=== PATIENT | male | born 1955 | race Caucasian/White ===

== ENCOUNTER 2020-12-14 13:27 | Inpatient (IN) ==
[2020-12-14] MEDS ORDERED: cefTRIAXone SODIUM 2,000 MG/70 ML BAG IV STA (13:55)
--- NOTE | 2020-12-14 14:09 | Emergency Department Note ---
Impression & Plan Cellulitis, Edema, Post op infection, Infection of bursa ED Provider Note NAME: MILENA RODGERS AGE: 65 SEX: M : 1955 ARRIVES VIA: Walk-In INFORMANT: Patient ED PROVIDER(S): Tucker Middleton DO CHIEF COMPLAINT: Left leg pain HPI: Patient is a 65-year-old male who had surgery on his left knee for his bursa, bone spurs and he believes they did some with the bone marrow to help it heal quicker. He presents the ER for redness and swelling of the leg which has been getting worse for the past week. He had the surgery done down in [place]. A week after the surgery he had a significant amount of swelling and his physician opened up the incision and expressed a large amount of blood. He notes it was healing well until he started PT about a week ago. The swelling started then along with some redness over the kneecap. It has now progressed to include his entire left lower extremity. ROS: See above HPI for pertinent positives & negatives. A total of 10 systems reviewed and were otherwise negative. PAST MEDICAL HISTORY:See Below PAST SURGICAL HISTORY:See Below FAMILY HISTORY:See Below SOCIAL HISTORY:See Below HOME MEDICATIONS:See Below ALLERGIES:See Below VITALS:See Below PHYSICAL EXAMINATION: GENERAL: Sitting up in bed, alert, well appearing, well nourished, no distress, non-toxic EYE EXAM: normal conjunctiva. OROPHARYNX: no exudate, no erythema, lips, buccal mucosa, and tongue normal and mucous membranes are moist NECK: supple, no nuchal rigidity, no adenopathy, non-tender LUNGS: Clear to auscultation. Normal chest wall mechanics HEART: no murmurs, S1 normal and S2 normal ABDOMEN: abdomen soft, non-tender, normo-active bowel sounds, no masses, no rebound or guarding. UPPER EXTREMITIES: upper extremities are grossly normal. LOWER EXTREMITIES: Swelling and erythema over the left knee with a prepatellar effusion. Redness is tracking down the leg to the ankle. NEURO EXAM: Normal sensorium, cranial nerves II-XII grossly intact, normal speech, no gross weakness of arms, no gross weakness of legs. MEDICAL DECISION MAKING: Patient is a 65-year-old male who presents the ER for redness and pain in his left lower extremity. This all started about within 1 month from the surgery of his left knee. On exam he has a postop infection which likely includes the left knee prepatellar bursa. IV was established blood work was obtained. Labs show no significant leukocytosis or anemia. BMP was unremarkable as well as LFTs bilirubin. Orthopedics was consulted and patient was admitted for further work- up. X-rays of the knee showed prepatellar effusion. Triage Nursing notes reviewed. Limited review of prior medical records performed Vital Signs: reviewed and remarkable for no significant abnormalities Differential diagnosis: Cellulitis, abscess, MRSA infection, DVT, necrotizing fasciitis, dermatitis, drug eruption, allergic reaction, as well as other pathologies. ER treatment provided: See below Diagnostics interpreted by me: ECG: none Cardiac Monitoring: An order was placed for continuous cardiac monitoring. The monitor shows a rate of 70 with sinus rhythm. Laboratory studies: As stated above and show below. Imaging studies: X-ray left knee shows prepatellar effusion Consultation(s): Discussed with Dr. Benoit Ambrocio who evaluated the patient at bedside admitted on. Procedures: none Critical Care: None Past Med/Surg History Social History Smoking Status: Never smoker Preferred Language: Nicaraguan Feels Safe at Home: Yes Allergies Allergies Allergy/AdvReac Type Severity Reaction Status Date / Time No Known Allergies Allergy Unverified 12/14/20 14:36 Home Meds Home Medications Medication Instructions Recorded Confirmed allopurinol 100 mg PO DAILY 12/14/20 12/14/20 atenolol 25 mg PO DAILY 12/14/20 12/14/20 folic acid 0.8 mg PO BID 12/14/20 12/14/20 hydrochlorothiazide 25 mg PO DAILY 12/14/20 12/14/20 methotrexate sodium 5 mg PO DAILY 12/14/20 12/14/20 potassium citrate 10 meq PO BID 12/14/20 12/14/20 simvastatin 20 mg PO DAILY 12/14/20 12/14/20 Results & Data (ED) Vital Signs Vital Signs - 24 hr 12/14/20 13:33 12/14/20 14:29 12/14/20 16:00 Temperature 36.3 C L Temperature Source Temporal Artery Scan Pulse Rate 70 62 Pulse Rate from SpO2 Sensor 62 67 Respiratory Rate 18 16 Respiratory Effort / Characteristics Non-Labored Spontaneous Respiratory Depth Normal Respiratory Pattern Regular Blood Pressure 136/86 129/84 Blood Pressure Mean 102 99 Pulse Oximetry 96 97 98 Oxygen Delivery Method Room Air Sepsis Recent Fever Within 48 Hours No Sepsis New/Unexplained Change in Mental Status No Sepsis Action Taken by Nursing No Action Required 12/14/20 17:01 Temperature Temperature Source Pulse Rate Pulse Rate from SpO2 Sensor 66 Respiratory Rate 16 Respiratory Effort / Characteristics Respiratory Depth Respiratory Pattern Blood Pressure 153/97 H Blood Pressure Mean 115 Pulse Oximetry 97 Oxygen Delivery Method Sepsis Recent Fever Within 48 Hours Sepsis New/Unexplained Change in Mental Status Sepsis Action Taken by Nursing Laboratory Data Result diagrams: 12/14/20 13:50 12/14/20 13:50 Lab Results 12/14/20 12/14/20 12/14/20 Range/Units 13:50 13:50 13:50 WBC 8.81 (4.8-10.8) K/uL RBC 4.03 L (4.7-6.1) M/uL Hgb 14.1 (14.0-18.0) g/dL Hct 40.1 L (42-52) % MCV 99.5 (80-100) fL MCH 35.0 H (25-34) pg MCHC 35.2 (32-36) g/dL RDW Std Deviation 47.6 H (36.4-46.3) fL RDW Coeff of Castro 13.2 (11.5-14.5) % Plt Count 262 (130-400) K/uL MPV 9.1 (7.4-10.4) fL Immature Gran % (Auto) 0.2 % Neut % (Auto) 71.9 % Lymph % (Auto) 17.4 % Stevens % (Auto) 8.6 % Eos % (Auto) 1.7 % Baso % (Auto) 0.2 % Neut # (Auto) 6.33 (1.4-6.5) K/uL Lymph # (Auto) 1.53 (1.2-3.4) K/uL Stevens # (Auto) 0.76 H (0.11-0.59) K/uL Eos # (Auto) 0.15 (0-0.5) K/uL Baso # (Auto) 0.02 (0-0.2) K/uL Immature Gran # (Auto) 0.02 (0.00-0.02) K/uL ESR 56 H (0-20) mm/hr Sodium 141 (136-145) mmol/L Potassium 3.5 (3.5-5.1) mmol/L Chloride 105 (98-107) mmol/L Carbon Dioxide 32 (21-32) mmol/L Anion Gap 4.0 (3-11) BUN 22 H (7-18) mg/dl Creatinine 1.24 (0.6-1.4) mg/dl Est Cr Clr Drug Dosing 65.3 ml/min Est GFR ( Amer) 69.3 Est GFR (Non-Af Amer) 59.8 BUN/Creatinine Ratio 17.3 (10-20) Glucose 87 (70-99) mg/dl Calcium 9.9 (8.5-10.1) mg/dl Total Bilirubin 0.8 (0.2-1) mg/dl AST 19 (15-37) U/L ALT 31 (12-78) U/L Alkaline Phosphatase 112 (45-117) U/L C-Reactive Protein (0-0.29) mg/dl Total Protein 7.3 (6.4-8.2) gm/dl Albumin 3.2 L (3.4-5.0) gm/dl Globulin 4.1 H (2.5-4.0) gm/dl Albumin/Globulin Ratio 0.8 L (0.9-2) Fluid Comment Synovial Source Synovial Color Synovial Appearance Synovial WBC (0-200) /ul Synovial RBC /uL Synovial Polynuclear % % Synovial Mononuclear % % COVID-19 Eval Order SARS-CoV-2 (PCR) (Negative) Influenza Type A (PCR) (Neg) Influenza Type B (PCR) (Neg) RSV (RT-PCR) (Neg) 12/14/20 12/14/20 12/14/20 Range/Units 13:50 15:21 17:10 WBC (4.8-10.8) K/uL RBC (4.7-6.1) M/uL Hgb (14.0-18.0) g/dL Hct (42-52) % MCV (80-100) fL MCH (25-34) pg MCHC (32-36) g/dL RDW Std Deviation (36.4-46.3) fL RDW Coeff of Castro (11.5-14.5) % Plt Count (130-400) K/uL MPV (7.4-10.4) fL Immature Gran % (Auto) % Neut % (Auto) % Lymph % (Auto) % Stevens % (Auto) % Eos % (Auto) % Baso % (Auto) % Neut # (Auto) (1.4-6.5) K/uL Lymph # (Auto) (1.2-3.4) K/uL Stevens # (Auto) (0.11-0.59) K/uL Eos # (Auto) (0-0.5) K/uL Baso # (Auto) (0-0.2) K/uL Immature Gran # (Auto) (0.00-0.02) K/uL ESR (0-20) mm/hr Sodium (136-145) mmol/L Potassium (3.5-5.1) mmol/L Chloride (98-107) mmol/L Carbon Dioxide (21-32) mmol/L Anion Gap (3-11) BUN (7-18) mg/dl Creatinine (0.6-1.4) mg/dl Est Cr Clr Drug Dosing ml/min Est GFR ( Amer) Est GFR (Non-Af Amer) BUN/Creatinine Ratio (10-20) Glucose (70-99) mg/dl Calcium (8.5-10.1) mg/dl Total Bilirubin (0.2-1) mg/dl AST (15-37) U/L ALT (12-78) U/L Alkaline Phosphatase (45-117) U/L C-Reactive Protein 10.40 H (0-0.29) mg/dl Total Protein (6.4-8.2) gm/dl Albumin (3.4-5.0) gm/dl Globulin (2.5-4.0) gm/dl Albumin/Globulin Ratio (0.9-2) Fluid Comment Synovial Source KNEE Synovial Color ZORA Synovial Appearance HAZY Synovial WBC 4728 H (0-200) /ul Syn[place] RBC 63[address] /uL Synovial Polynuclear % 96.5 % Synovial Mononuclear % 3.5 % COVID-19 Eval Order CovFluRsv at [facility] SARS-CoV-2 (PCR) (Negative) Influenza Type A (PCR) (Neg) Influenza Type B (PCR) (Neg) RSV (RT-PCR) (Neg) 12/14/20 Range/Units 17:10 WBC (4.8-10.8) K/uL RBC (4.7-6.1) M/uL Hgb (14.0-18.0) g/dL Hct (42-52) % MCV (80-100) fL MCH (25-34) pg MCHC (32-36) g/dL RDW Std Deviation (36.4-46.3) fL RDW Coeff of Castro (11.5-14.5) % Plt Count (130-400) K/uL MPV (7.4-10.4) fL Immature Gran % (Auto) % Neut % (Auto) % Lymph % (Auto) % Stevens % (Auto) % Eos % (Auto) % Baso % (Auto) % Neut # (Auto) (1.4-6.5) K/uL Lymph # (Auto) (1.2-3.4) K/uL Stevens # (Auto) (0.11-0.59) K/uL Eos # (Auto) (0-0.5) K/uL Baso # (Auto) (0-0.2) K/uL Immature Gran # (Auto) (0.00-0.02) K/uL ESR (0-20) mm/hr Sodium (136-145) mmol/L Potassium (3.5-5.1) mmol/L Chloride (98-107) mmol/L Carbon Dioxide (21-32) mmol/L Anion Gap (3-11) BUN (7-18) mg/dl Creatinine (0.6-1.4) mg/dl Est Cr Clr Drug Dosing ml/min Est GFR ( Amer) Est GFR (Non-Af Amer) BUN/Creatinine Ratio (10-20) Glucose (70-99) mg/dl Calcium (8.5-10.1) mg/dl Total Bilirubin (0.2-1) mg/dl AST (15-37) U/L ALT (12-78) U/L Alkaline Phosphatase (45-117) U/L C-Reactive Protein (0-0.29) mg/dl Total Protein (6.4-8.2) gm/dl Albumin (3.4-5.0) gm/dl Globulin (2.5-4.0) gm/dl Albumin/Globulin Ratio (0.9-2) Fluid Comment Synovial Source Synovial Color Synovial Appearance Synovial WBC (0-200) /ul Synovial RBC /uL Synovial Polynuclear % % Synovial Mononuclear % % COVID-19 Eval Order SARS-CoV-2 (PCR) NEGATIVE (Negative) Influenza Type A (PCR) Negative (Neg) Influenza Type B (PCR) Negative (Neg) RSV (RT-PCR) Negative (Neg) Administered Medications Discontinued Medications Ceftriaxone Sodium (Rocephin) 2,000 mg in 70 mls @ 140 mls/hr IV NOW STA Stop: 12/14/20 14:24 Last Infusion: 12/14/20 15:31 Dose: 0 mls/hr Documented by: [id number] Admin: 12/14/20 14:31 Dose: 140 mls/hr Documented by: [id number] Piperacillin Sod/Tazobactam (Sod 4.5 gm/ Dextrose) 120 mls @ 200 mls/hr IV NOW ONE; Protocol Stop: 12/14/20 16:22 Last Infusion: 12/14/20 18:02 Dose: 0 mls/hr Documented by: [id number] Admin: 12/14/20 17:50 Dose: 200 mls/hr Documented by: [id number] Piperacillin Sod/Tazobactam Sod (Piperacillin/Tazobactam 4.5 Gm/120ml D5w) Confirm Administered Dose 4.5 gm IV .STK-MED ONE Stop: 12/14/20 16:51 Last Admin: 12/14/20 17:05 Dose: 4.5 gm Documented by: [id number] Imaging Data Radiologist's Impression: Knee X-Ray 12/14/20 13:55 XR knee LT 3V HISTORY: 65 years-old Male l knee acute left knee pain COMPARISON: None TECHNIQUE: 3 views of the left knee FINDINGS: Moderate prepatellar soft tissue swelling. Circumferential soft tissue swelling of the knee. Mild medial and patellofemoral compartment osteoarthritis. No acute fracture, dislocation, or opaque foreign body. Trace joint effusion. IMPRESSION: 1. No acute fracture. 2. Circumferential soft tissue swelling, moderate in the prepatellar tissues. ACT 112: Negative or not required by law. The above report was generated using voice recognition software. It may contain grammatical, syntax or spelling errors. Electronically signed by: Rayray Major M.D. 12/14/2020 2:17 PM Chest X-Ray 12/14/20 15:28 XR chest 2V PA/lateral HISTORY: 65 years-old Male knee infection acute sepsis COMPARISON: None TECHNIQUE: PA and lateral views of the chest FINDINGS: Cardiac silhouette is upper limits of normal in size. Mild bilateral hilar prominence. No pneumothorax, pleural effusion, airspace consolidation or overt pulmonary edema. Possible nipple shadow the left midlung, 7 mm. Surgical clips project over the upper chest. Degenerative changes of the shoulders and spine. IMPRESSION: 1. No airspace consolidation. 2. Mild bilateral hilar prominence may be secondary to pulmonary vasculature versus adenopathy. ACT 112: Negative or not required by law. The above report was generated using voice recognition software. It may contain grammatical, syntax or spelling errors. Electronically signed by: Rayray Major M.D. 12/14/2020 4:58 PM Venous Doppler Study 12/14/20 15:28 US venous doppler LE LT HISTORY: 65 years-old Male leg pain and swelling acute pain and swelling of the left lower extremity COMPARISON: None TECHNIQUE: Multiple real-time sonographic images of the left lower extremity deep venous structures were obtained assessing grayscale appearance, color and spectral flow FINDINGS: Normal flow, compressibility, phasicity and augmentation IMPRESSION: No sonographic evidence of deep venous thrombosis. ACT 112: Negative or not required by law. The above report was generated using voice recognition software. It may contain grammatical, syntax or spelling errors. Electronically signed by: Rayray Major M.D. 12/14/2020 4:54 PM Discharge Plan Visit Data Chief Complaint: Swelling/Edema to Extremity Stated Complaint: L KNEE SURGERY ON 11/06/SWELLING OF LEFT KNEE & LE ED Provider: Tucker Middleton Discharge Problem: Cellulitis, Edema, Post op infection, Infection of bursa Forms Stand Alone Forms: [employer] Prescriptions Prescriptions: No Action atenolol 25 mg Tablet 25 mg PO DAILY RF: 0 allopurinol 100 mg Tablet 100 mg PO DAILY RF: 0 potassium citrate 10 mEq (1,080 mg) Tablet Extended Release 10 meq PO BID RF: 0 simvastatin 20 mg Tablet 20 mg PO DAILY RF: 0 methotrexate sodium 5 mg Tablet 5 mg PO DAILY RF: 0 hydrochlorothiazide 25 mg Tablet 25 mg PO DAILY RF: 0 folic acid 0.8 mg Capsule 0.8 mg PO BID RF: 0 Discharge Problem: Cellulitis Qualifiers: Site of cellulitis: extremity Site of cellulitis of extremity: lower extremity Laterality: left Qualified Code(s): L03.116 - Cellulitis of left lower limb Edema Qualifiers: Edema type: unspecified Qualified Code(s): R60.9 - Edema, unspecified Post op infection Qualifiers: Encounter type: initial encounter Postoperative infection type: unspecified type Qualified Code(s): T81.40XA - Infection following a procedure, unspecified, initial encounter
[2020-12-14 14:14] LABS: Basophils # (auto) 0.02 K/uL (0-0.2); Basophils % (auto) 0.2 %; Eosinophils # (auto) 0.15 K/uL (0-0.5); Eosinophils % (auto) 1.7 %; Hematocrit (blood only) 40.1 % (42-52); Hemoglobin 14.1 g/dL (14.0-18.0); Immature Granulocytes # (auto) 0.02 K/uL (0.00-0.02); Immature Granulocytes % (auto) 0.2 %; Lymphocytes # (auto) 1.53 K/uL (1.2-3.4); Lymphocytes % (auto) 17.4 %; Mean Corpuscular Hgb Conc 35.2 g/dL (32-36); Mean Corpuscular Volume 99.5 fL (80-100); Mean Platelet Volume 9.1 fL (7.4-10.4); Monocytes # (auto) 0.76 K/uL (0.11-0.59); Monocytes % (auto) 8.6 %; Neutrophils # (auto) 6.33 K/uL (1.4-6.5); Neutrophils % (auto) 71.9 %; Platelet Count 262 K/uL (130-400); RDW Coefficient of Variation 13.2 % (11.5-14.5); RDW Standard Deviation 47.6 fL (36.4-46.3); Red Blood Count 4.03 M/uL (4.7-6.1); White Blood Count 8.81 K/uL (4.8-10.8)
--- NOTE | 2020-12-14 14:19 | XRay Report ---
XR knee LT 3V HISTORY: 65 years-old Male l knee acute left knee pain COMPARISON: None TECHNIQUE: 3 views of the left knee FINDINGS: Moderate prepatellar soft tissue swelling. Circumferential soft tissue swelling of the knee. Mild med ial and patellofemoral compartment osteoarthritis. No acute fracture, dislocation, or opaque foreign body. Trace joint effusion. IMPRESSION: 1. No acute fracture. 2. Circumferential soft tissue swelling, moderate in the prepatellar tissues. ACT 112: Negative or not required by law. The above report was generated using voice recognition software. It may contain grammatical, syntax o r spelling errors. Electronically signed by: Rayray Major M.D. 12/14/2020 2:17 PM
[2020-12-14 14:26] LABS: Albumin Level 3.2 gm/dl (3.4-5.0); BUN Creatinine Ratio 17.3 (10-20); Calcium 9.9 mg/dl (8.5-10.1); Creatinine Clr Calc Pharmacy 65.3 ml/min; Est GFR (African American) 69.3; Est GFR (Non-African American) 59.8; Potassium 3.5 mmol/L (3.5-5.1)
[2020-12-14 14:29] LABS: Albumin Globulin Ratio 0.8 (0.9-2); Bilirubin,Total 0.8 mg/dl (0.2-1); Globulin 4.1 gm/dl (2.5-4.0); Total Protein 7.3 gm/dl (6.4-8.2)
[2020-12-14] MEDS ORDERED: VANCOMYCIN CONSULT ACTIVE PRN ×3 (15:45→20:16)
[2020-12-14] MEDS ORDERED: PIPERACILL/TAZOBAC CONSULT ACTIVE PRN (15:47)
[2020-12-14] MEDS ORDERED: PIPERACILLIN/TAZOBACTAM 4.5 GM in DEXTROSE 5% 100 ML IV ONE (15:47)
[2020-12-14 16:05] LABS: Appearance Synovial Fluid HAZY; Color Synovial Fluid AMBER; Mononuclear WBC Synovial 3.5 %; Polynuclear WBC Synovial 96.5 %; RBC Synovial Fluid (A) 30000 /uL; Source Synovial Fluid KNEE; WBC Synovial Fluid (A) 4728 /ul (0-200)
[2020-12-14] MEDS ORDERED: PIPERACILLIN/TAZOBACTAM 4.5 GM/120ML D5W IV ONE (16:50)
--- NOTE | 2020-12-14 16:56 | Ultrasound Report ---
US venous doppler LE LT HISTORY: 65 years-old Male leg pain and swelling acute pain and swelling of the left lower extremity COMPARISON: None TECHNIQUE: Multiple real-time sonographic images of the left lower extremity deep venous structures w ere obtained assessing grayscale appearance, color and spectral flow FINDINGS: Normal flow, compressibility, phasicity and augmentation IMPRESSION: No sonographic evidence of deep venous thrombosis. ACT 112: Negative or not required by law. The above report was generated using voice recognition software. It may contain grammatical, syntax o r spelling errors. Electronically signed by: Rayray Major M.D. 12/14/2020 4:54 PM
--- NOTE | 2020-12-14 16:59 | XRay Report ---
XR chest 2V PA/lateral HISTORY: 65 years-old Male knee infection acute sepsis COMPARISON: None TECHNIQUE: PA and lateral views of the chest FINDINGS: Cardiac silhouette is upper limits of normal in size. Mild bilateral hilar prominence. No pneumothora x, pleural effusion, airspace consolidation or overt pulmonary edema. Possible nipple shadow the left midlung, 7 mm. Surgical clips project over the upper chest. Degenerative changes of the shoulders an d spine. IMPRESSION: 1. No airspace consolidation. 2. Mild bilateral hilar prominence may be secondary to pulmonary vasculature versus adenopathy. ACT 112: Negative or not required by law. The above report was generated using voice recognition software. It may contain grammatical, syntax o r spelling errors. Electronically signed by: Rayray Major M.D. 12/14/2020 4:58 PM
--- NOTE | 2020-12-14 17:47 | History and Physical Report ---
DATE OF ADMISSION: 12/14/2020 CHIEF COMPLAINT: Left knee pain and swelling. HISTORY OF PRESENT ILLNESS: The patient is a 65. 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 On 11/06/2020, he had a left knee prepatellar open bursectomy. He reports that the doctor removed some bone spurs and also did something with bone marrow. Records are requested and pending. He did not have a knee arthroscopy. He has been in a knee brace to ambulate weightbearing as tolerated with the knee in extension, which does not bother him. He has been in physical therapy and is able to bend his knee, he reports up to 120 degrees. After the surgery because of the nerve block, he fell a couple times and when he went back to follow up with his doctor, it sounds like he had a hematoma in the bursa, which they squeezed to express. For the subsequent several days, he had a little bit of drainage from the knee, but since about 2-3 weeks after surgery, he has not had any knee drainage. The knee had not returned to its normal size and remained somewhat swollen. Over the past week and particularly over the past 3 days, he has noted increased knee pain, especially when he is standing. Swelling of the knee and leg as well as there is redness of the knee and lower left leg. The leg problems really begun in the past 24-48 hours. He denies having fevers, but he did have one episode of chills. His doctor is Tess Gunderson in [place]. He saw the physician's dietary assistant 2 weeks postop and is due to go back for followup in about 2 weeks. He is supposed to head back to [place] on Friday. PAST MEDICAL HISTORY: Significant for rheumatoid arthritis, hypertension, kidney stones and cholesterol. REVIEW OF SYSTEMS: He denies diabetes, heart attack, stroke, lung disease, cancer, blood clots or bleeding problems. ALLERGIES TO MEDICINES: None. SOCIAL HISTORY: He lives in [place]. He is retired. He occasionally drinks and does not smoke. PAST SURGICAL HISTORY: Surgically, he has only had both of his knee bursas excised. MEDICATIONS: Include atenolol, allopurinol, which he takes for kidney stones, simvastatin, calcium citrate for kidney stones and hydrochlorothiazide. He takes methotrexate 8 tablets of 5 mg once a week on Wednesday. He just took it yesterday. PHYSICAL EXAMINATION: GENERAL: He is awake, alert and oriented in no acute distress. EXTREMITIES: Examination of the left knee reveals bright red discoloration with some purplish use involving the prepatellar bursal area of the left knee extending medial and lateral to the midline and distal to the tibial tubercle, but nothing proximally. There is no proximal tenderness or lymphadenopathy in the left groin. The left quadriceps is atrophied. He is able to do a straight leg raise and has knee motion from 0-100 degrees. There is trace if any intraarticular fluid, but a large prepatellar bursal collection. The incision is well healed and there is no drainage. Dorsalis pedis and posterior tibial pulses are 1+. Sensation is intact. He is able to do a straight leg raise without a lag. He has 5/5 knee flexion and extension strength. 5/5 ankle and toe plantarflexion, dorsiflexion, inversion and eversion strength. Erythema extends down the anterior leg with 1+ pitting edema down to the ankle area. The foot is uninvolved. The posterior calf is not tender. Homans sign is negative. Radiographs of the knee are reviewed showing no evidence of fracture or dislocation. There is no subcutaneous emphysema and no evidence of osteomyelitis. Minimal arthritic changes and no intra-articular effusion. There is no alteration in patellar height. There is a large collection of soft tissue swelling anterior to the kneecap. LABORATORY DATA: He is afebrile and his vital signs are stable. White count is 8.8, hemoglobin 14, hematocrit 40, platelet count 262. Sed rate and C-reactive protein are pending. PRP is noted, and BUN 22. A chest x-ray, EKG, other lab work pending. PROCEDURE: With the patient's permission after discussion of appropriate risks prepping of the knee with alcohol was performed. An 18-gauge needle was utilized to aspirate 30 mL of serosanguineous thin fluid from the prepatellar bursa. This essentially removed all of the fluid. He felt better. He can bend his knee easier. The knee joint proper was not entered. This fluid was sent for Gram stain, aerobic and anaerobic culture, crystal analysis, cell count with differential. IMPRESSION: Left leg cellulitis with recurrent bursitis, possibly infectious, status post left knee prepatellar bursal excision. PLAN: Findings are discussed with the patient. I would like to get the records from his surgery. He will be admitted to the hospital for intravenous antibiotics. We will monitor his lab results. Adjust antibiotics accordingly. The bursa may need to be reaspirated. Surgery may be indicated, but presently I do not think that surgery is needed. We will order a chest x-ray and an EKG and also will go ahead and get a duplex Doppler ultrasound because of the left leg swelling and pain. Antibiotic warren, we will give him vancomycin as well as Zosyn, given that he has had recent surgery and has rheumatoid arthritis on methotrexate. We will adjust accordingly. He will be n.p.o. in case we need to operate on him tomorrow. He is to elevate the leg and to wear the knee immobilizer when he is up and about for his surgeon in [place] instructions. Impulse foot pumps for DVT prophylaxis. COVID test as appropriate.
[2020-12-14 18:23] LABS: Influenza A virus by PCR Negative (Neg); Influenza B virus by PCR Negative (Neg); RSV by PCR Negative (Neg); SARS CoV2 RNA(COVID-19) InHosp NEGATIVE (Negative)
[2020-12-14] MEDS ORDERED: VANCOMYCIN HCL 2,250 MG in SODIUM CHLORIDE 0.9% 500 ML IV SCH (19:15)
[2020-12-14] MEDS ORDERED: oxyCODONE/ACETAMINOPHEN 5mg/325mg TAB PO PRN (20:16)
[2020-12-14] MEDS ORDERED: ONDANSETRON INJ 2 MG/ML 2 ML VIAL IV PRN (20:16)
[2020-12-14] MEDS ORDERED: diphenhydrAMINE Capsule 25 MG CAP PO PRN (20:16)
[2020-12-14] MEDS ORDERED: ALUMINUM/MAGNESIUM SUSP 30 ML UDC PO PRN (20:16)
[2020-12-14] MEDS ORDERED: VANCOMYCIN HCL 1,750 MG in SODIUM CHLORIDE 0.9% 500 ML IV ONE (20:16)
[2020-12-14] MEDS ORDERED: METOCLOPRAMIDE HCL INJ 5 MG/ML 2 ML VIAL IV PRN (20:16)
[2020-12-14] MEDS ORDERED: ACETAMINOPHEN 325 MG TAB PO PRN (20:16)
[2020-12-14] MEDS ORDERED: KETOROLAC TROMETHAMINE 15 MG/ML VIAL IV PRN (20:47)
[2020-12-14] MEDS: D5W AND 1/2NSS + 20MEQ KCL 20 MEQ/1,000 ML BAG IV SCH (21:43)
[2020-12-14] MEDS: FOLIC ACID 400 MCG TAB PO SCH (21:43)
[2020-12-14] MEDS: POTASSIUM CITRATE 10 MEQ TAB PO SCH (21:44)
[2020-12-14] MEDS: PIPERACILLIN/TAZOBACTAM 3.375 GM in DEXTROSE 5% 100 ML IV SCH (22:41)
[2020-12-15] MEDS: PIPERACILLIN/TAZOBACTAM 3.375 GM in DEXTROSE 5% 100 ML IV SCH ×3 (05:47→22:34)
[2020-12-15] MEDS: VANCOMYCIN HCL 1,250 MG in SODIUM CHLORIDE 0.9% 250 ML IV SCH ×2 (07:34→20:26)
[2020-12-15] MEDS: POTASSIUM CITRATE 10 MEQ TAB PO SCH ×2 (07:36→20:33)
[2020-12-15] MEDS: DOCUSATE SODIUM/SENNA 50/8.6MG TAB PO SCH (07:36)
[2020-12-15] MEDS: ATENOLOL 25 MG TABLET PO SCH (07:36)
[2020-12-15] MEDS: FOLIC ACID 400 MCG TAB PO SCH ×2 (07:36→20:33)
[2020-12-15] MEDS: allopurinoL 100 MG TAB PO SCH (07:37)
[2020-12-15] MEDS: hydroCHLOROthiazide 25 MG TAB PO SCH (07:37)
--- NOTE | 2020-12-15 08:11 | Progress Notes ---
DATE: 12/15/2020 The patient is seen at the bedside. Overall, the leg is slightly better to unchanged. He can bend his knee up to 90 degrees with less difficulty. The erythema is about the same, perhaps slightly less. There is minimal fluid reaccumulation much less than there was yesterday. There is slightly less tenderness. He is afebrile. His vital signs are stable, although his blood pressure was running a little bit high yesterday. We will continue to monitor today. His sed rate and C-reactive protein are elevated. Crystals are pending. His culture is pending. The white blood cell count in the fluid aspirate was only about 6000, so not really consistent with infection. We will go ahead and Hep-Lock his IV today and let him eat. He can be up and about, but should focus on elevating. We will continue antibiotics and will follow up on cultures later today.
[2020-12-15] MEDS ORDERED: SIMVASTATIN 20 MG TAB PO SCH (09:00)
--- NOTE | 2020-12-15 09:57 | Electrocardiogram Report ---
Test Reason : Blood Pressure : / mmHG Vent. Rate : 064 BPM Atrial Rate : 064 BPM P-R Int : 168 ms QRS Dur : 078 ms QT Int : 400 ms P-R-T Axes : 061 018 019 degrees QTc Int : 412 ms Normal sinus rhythm Possible Old Septal infarct Abnormal ECG No previous ECGs available Confirmed by Julien Poole ([id number]) on 12/15/2020 9:57:51 AM Referred By: REFERRED SELF Confirmed By:Julien Poole
[2020-12-15] MEDS: D5W AND 1/2NSS + 20MEQ KCL 20 MEQ/1,000 ML BAG IV SCH (10:20)
--- NOTE | 2020-12-15 14:30 | Pharmacy Report ---
Pharmacy Abx Dose Short Note - Date of Service December 15, 2020 - Assessment & Plan Assessment 65 year old M receiving IV Vancomycin & Zosyn for treatment of Left leg cellulitis with recurrent bursitis, possibly infectious, s/p prepatellar bursal excision. Day # 2 of antimicrobial therapy. Plan Vancomycin * Patient meets criteria for vancomycin AUC dosing nomogram * AUC/JESSICA is the preferred PK/PD target for vancomycin Target AUC/JESSICA = 400-600 AUC guided dosing is effective and associated with decreased risk of nephrotoxicity * Vancomycin 1250mg IV q12h * Trough level ordered for: 12/16/20 prior to 2000 dose Zosyn * 3.375g IV q8h extended interval infusion for CrCl > 20ml/min Pharmacy will continue to follow and will adjust dose/frequency as necessary. Thank you.
[2020-12-15] MEDS ORDERED: hydrALAZINE HCL 20 MG/ML VIAL IV PRN (15:27)
[2020-12-16] MEDS: PIPERACILLIN/TAZOBACTAM 3.375 GM in DEXTROSE 5% 100 ML IV SCH (05:32)
[2020-12-16 06:31] LABS: Creatinine Clr Calc Pharmacy 71.7 ml/min; Est GFR (African American) 77.5; Est GFR (Non-African American) 66.9
[2020-12-16] MEDS: allopurinoL 100 MG TAB PO SCH (08:00)
[2020-12-16] MEDS: hydroCHLOROthiazide 25 MG TAB PO SCH (08:00)
[2020-12-16] MEDS: FOLIC ACID 400 MCG TAB PO SCH (08:00)
[2020-12-16] MEDS: DOCUSATE SODIUM/SENNA 50/8.6MG TAB PO SCH (08:00)
[2020-12-16] MEDS: ATENOLOL 25 MG TABLET PO SCH (08:00)
[2020-12-16] MEDS: POTASSIUM CITRATE 10 MEQ TAB PO SCH (08:00)
[2020-12-16] MEDS: VANCOMYCIN HCL 1,250 MG in SODIUM CHLORIDE 0.9% 250 ML IV SCH (08:07)
--- NOTE | 2020-12-16 11:43 | Progress Notes ---
DATE: 12/16/2020 No problems noted. Knee feels better. Blood pressure is better. He has been afebrile with vital signs stable. Cultures are no growth to date x48 hours. Examination shows intact distal neurovascular function. Intact straight leg raise. Knee motion 0-90. Erythema of the lower leg has completely resolved. There is some dark reddish discoloration, a little bit purple just around the prior surgical incision about 5-6 cm in diameter over the anterior aspect of the knee. There is 1+ pretibial edema, but the calf is not tender. He does not have an intraarticular effusion. There is a small amount of fluid reaccumulated within the bursa. Tenderness is isolated to the bursal area and is improved. We talked about the options and I offered to aspirate the bursa and he agreed to proceed. This was double prepped with alcohol and then 15 mL of bloody fluid were aspirated from the bursa. A compressive wrap was then applied. Pedro wrap and then a ALICIA hose stocking. A preprocedural timeout was performed, witnessed by the nurse. IMPRESSION: Left leg cellulitis with aseptic prepatellar bursitis, status post a left knee prepatellar bursectomy. PLAN: Findings discussed. I think things are improved to the point where he can be discharged and he is agreeable. He should follow up with his medical doctor about his blood pressure. He should follow up with his orthopedic doctor as soon as possible next week back in [place]. He will be traveling to [place] tomorrow and then to [place] thereafter. We talked about the risk of blood clots, and I recommended every couple hours he get out and do some exercises. He should wear loose fitting clothes and drink plenty of fluids. He can also take aspirin. If he has any problems, he can call my office or go to the nearest Emergency Room. He will resume his regular medications and will be on Bactrim-DS for antibiotic.
[2020-12-16] MEDS ORDERED: VANCOMYCIN TROUGH ONE (19:30)
[2020-12-16] MEDS ORDERED: SIMVASTATIN 20 MG TAB PO SCH (21:00)
--- NOTE | 2020-12-17 02:01 | Discharge Summary (DS) ---
ADMISSION DIAGNOSES: Left leg cellulitis with suspected postsurgical left knee septic prepatellar bursitis. DISCHARGE DIAGNOSES: Left leg cellulitis with recurrent sterile left knee prepatellar bursitis. PROCEDURES: Multiple aspirations and Doppler ultrasound. ATTENDING PHYSICIAN AND SURGEON: Benoit Ambrocio MD BRIEF HISTORY: Mr. Castaneda had knee surgery for prepatellar bursitis a number of weeks ago in [place]. He was up here visiting. He developed increased redness, pain and swelling. He came to the Emergency Room. He was evaluated at that time and had significant cellulitis and prepatellar bursitis. The knee was aspirated and he was placed on intravenous antibiotics. He was then admitted to the hospital for IV antibiotics and monitoring of his studies. We talked about the possibility of needing surgery. HOSPITAL COURSE: His culture was no growth to date x48 hours. Crystal analysis negative. Sed rate and C-reactive protein elevated. He was afebrile. The white count within the fluid was about 5000. A Doppler ultrasound was done to rule out DVT, which was negative. His serum white blood cell count remained normal. He did have some high blood pressure, which was addressed with hydralazine. On 12/16/2020, the leg was reassessed and found to be improved in terms of erythema of the leg and knee area. He did have some further fluid in the bursa, which was aspirated, detailed in my daily progress note. He was on vancomycin and Zosyn for broad-spectrum antibiotic coverage. He does have a history of rheumatoid arthritis and takes methotrexate. He is discharged home in good condition. He will follow up with his family doctor to evaluate his high blood pressure. He will follow up with his orthopedic doctor as soon as possible next week. If he has any problems in the meantime with pain, fever, swelling, any other problems or questions, he can call my office, go to the nearest Emergency Room, or contact his medical team in [place]. He will resume his regular medications. He will be placed on Bactrim DS 1 p.o. b.i.d. x10 days. We talked about DVT prevention for upcoming trip to [place]. Elevate, ALICIA hose stocking, rest, ice. He will continue his previous activity restrictions and rehabilitation. He does not require any pain medication. He could take Tylenol for pain.
== END 2020-12-16 12:09 | disposition home or self-care (01) | DRG 863 ==
LOC: ED 13:27 → 3E 15:57 → MERGE 15:57 → 3E 20:26